=== PATIENT | male | born 1930 | race Caucasian/White ===

== ENCOUNTER 2017-08-30 12:36 | Observation (INO) | payer MEDICARE, OTHER ==
[~2017-08-30] VITALS: Ht 180.3 cm; Wt 71.4 kg
[~2017-08-30 12:36] MED LIST: BETAPACE80 M1 PO; Z OSTEO BI FLEX PO; Z.0.ASPIRIN81 MG PO; Z.0.MULTIVITAMINS1 E PO; Z.0.NEXIUM40 MG PO; Z.0.PLAQUENIL200 MG PO; Z.0.PLAVIX75 MG PO; Z.0.REGLAN10 MG PO; Z.0.VYTORIN 10-401 E PO
[2017-08-30 13:02] LABS: BASOPHILS % 0.5 % (0.0-1.0); EOSINOPHILS # (AUTO) 0.2 (0.0-0.4); EOSINOPHILS % 2.5 % (0.0-6.0); HEMATOCRIT 35.5 % (38.2-49.6); HEMOGLOBIN 12.3 g/dL (14.0-18.0); LYMPHOCYTES % 26.4 % (18.0-39.1); MEAN CORPUSCULAR HEMOGLOBIN 31.8 pg (28-32); MEAN CORPUSCULAR HGB CONC 34.6 g/dL (31-35); MEAN CORPUSCULAR VOLUME 91.7 fL (81-99); MONOCYTES # (AUTO) 0.8 (0.2-0.8); MONOCYTES % 10.2 % (4.4-11.3); NEUTROPHILS # (AUTO) 4.6 (2.1-6.9); NEUTROPHILS % 60.1 % (38.7-80.0); PLATELET COUNT 187 x10e3/uL (140-360); RED BLOOD COUNT 3.87 x10e6/uL (4.3-5.7); RED CELL DISTRIBUTION WIDTH 12.7 % (11.7-14.4)
[2017-08-30 13:10] LABS: INR 1.18; PROTHROMBIN TIME 14.1 seconds (11.9-14.5)
[2017-08-30 13:11] LABS: PARTIAL THROMBOPLASTIN TIME 26.9 seconds (23.8-35.5)
[2017-08-30 13:20] LABS: ALANINE AMINOTRANSFERASE 11 IU/L (0-55); ALBUMIN/GLOBULIN RATIO 1.2 (0.8-2.0); ALKALINE PHOSPHATASE 72 IU/L (40-150); AMYLASE 59 U/L (25-125); ANION GAP 12.6 mmol/L (8-16); BLOOD UREA NITROGEN 14 mg/dL (7-26); BUN/CREATININE RATIO 16 (6-25); CALCIUM 9.7 mg/dL (8.4-10.2); CARBON DIOXIDE 27 mmol/L (22-29); CHLORIDE 96 mmol/L (98-107); CREATINE KINASE 112 IU/L (30-200); CREATININE, SERUM 0.86 mg/dL (0.72-1.25); EST GLOMERULAR FILTRATION RATE > 60 ML/MIN (60-); GLUCOSE 119 mg/dL (74-118); LIPASE 24 U/L (8-78); MAGNESIUM 2.9 MG/DL (1.3-2.1); POTASSIUM 4.6 mmol/L (3.5-5.1); SODIUM 131 mmol/L (136-145)
[2017-08-30 13:53] LABS: CLARITY,URINE HAZY (CLEAR); COLOR,URINE YELLOW (YELLOW); KETONES,URINE NEGATIVE (NEGATIVE); LEUKOCYTE ESTERASE ,URINE TRACE (NEGATIVE); NITRITE,URINE NEGATIVE (NEGATIVE); PROTEIN,URINE DIPSTICK NEGATIVE (NEGATIVE); URINE UROBILINOGEN 0.2 mg/dL (0.2 - 1)
[2017-08-30 13:54] LABS: BILIRUBIN,URINE NEGATIVE (NEGATIVE)
[2017-08-30 13:57] LABS: BACTERIA,URINE FEW /HPF; EPITHELIAL CELLS,URINE FEW /LPF; RBC,URINE 0-5 /HPF (0-5); WBC,URINE (MAN) 0-5 /HPF (0-5)
--- NOTE | 2017-08-30 14:04 | Diagnostic Imaging Report ---
EXAMINATION: CHEST SINGLE (PORTABLE) INDICATION: Pain. COMPARISON: April 01, 2015. FINDINGS: TUBES and LINES: None. . LUNGS: Bilateral lower lobe chronic changes. There is no evidence of pneumonia or pulmonary edema. PLEURA: No pleural effusion or pneumothorax. HEART AND MEDIASTINUM: The cardiomediastinal silhouette is unremarkable. Median sternotomy wires, unchanged. BONES AND SOFT TISSUES: No acute osseous lesion. Oval density centered on the mid lateral left hemithorax estimated at 10.7 x 6.5 cm concerning for mass. UPPER ABDOMEN: No free air under the diaphragm. IMPRESSION: No acute thoracic abnormality. 10.1 cm oval density projected on the lateral left hemithorax concerning for a mass. Recommend further evaluation with CT chest. Signed by: Dr. Tereso Pina M.D. on 08/30/2017 2:00 PM
--- NOTE | 2017-08-30 17:05 | Diagnostic Imaging Report ---
EXAM: CT Chest WITH contrast 08/30/2017 2:07 PM INDICATION: Pain. COMPARISON: None possible mass on chest x-ray. Prior asbestos exposure. Shortness of breath. TECHNIQUE: Chest was scanned utilizing a multidetector helical scanner from the lung apex through the level of the adrenal glands without administration of IV contrast. Coronal and sagittal reformations were obtained. Routine protocol was performed. IV CONTRAST: 100 cc [id number]. RADIATION DOSE: Total DLP: 471.77 mGy*cm Estimated effective dose: (DLP x 0.014 x size factor) mSv COMPLICATIONS: None FINDINGS: LINES/ TUBES: None. Mild bilateral emphysematous changes. Calcified granuloma in the right upper lobe laterally on coronal image 30. Patchy density in the left lung base laterally as seen on coronal image 34 is nonspecific, possibly atelectasis, scarring versus pneumonia in the proper setting. Thickening of the pulmonary interstitium in the lung bases is nonspecific, and can be seen with senescent fibrosis, however, differential diagnosis includes asbestosis. PLEURA: There are calcified and noncalcified plaques in the lateral left hemithorax, suggesting prior as best as exposure, and which resulted in appearance of the chest x-ray performed earlier in the same day. No parenchymal soft tissue mass is identified. There are also calcified pleural plaques in the right hemithorax. Biapical pleural-parenchymal scarring. HEART AND MEDIASTINUM: No mediastinal, hilar or axillary lymphadenopathy. The heart is normal in size.. There is no pericardial effusion. Mediastinum wires and mediastinal clips. Extensive opacification of the aorta and coronary arteries. UPPER ABDOMEN: Limited non-contrast views of the upper abdomen a few small subcentimeter low-attenuation lesions scattered throughout the spleen, nonspecific, however, statistically most likely benign in etiology such as small hamartomas. The adrenal glands are normal. BONES: There are degenerative changes in the thoracic spine. SOFT TISSUES: Unremarkable. IMPRESSION: 1. Calcified and noncalcified pleural plaques in the mid lateral left hemithorax likely resulted in appearance of a mass in the chest x-ray performed earlier the same day. There is no associated pulmonary parenchymal or chest wall mass as suspected. Bilateral calcified pleural plaques are suggestive of prior asbestos exposure. 2. Patchy density in the left lung base laterally may represent atelectasis, scarring versus developing pneumonia in the proper clinical setting. 3. Thickening of the pulmonary interstitium in the lung bases is nonspecific, and can be seen with senescent fibrosis, however, differential diagnosis includes asbestosis. Signed by: Dr. Tereso Pina M.D. on 08/30/2017 5:02 PM
[2017-08-30] MEDS ORDERED: SODIUM CHLORIDE 0.9% 50ML 50 ML ONE (19:04)
[2017-08-30] MEDS ORDERED: IOPAMIDOL 370 MG/ML 200 ML INFUS..BTL INJ ONE (19:04)
[2017-08-30 19:55] VITALS: BP 158/70
[2017-08-30 21:50] LABS: CREATINE KINASE MB 2.9 ng/mL (0-5.0)
[2017-08-31] VITALS: BP 116/60
[2017-08-31 00:49] VITALS: BP 116/60
[2017-08-31 00:54] VITALS: BP 116/60
[2017-08-31 04:00] VITALS: BP 114/52
[2017-08-31 05:58] LABS: CREATINE KINASE MB 3.2 ng/mL (0-5.0)
[2017-08-31] MEDS ORDERED: METOCLOPRAMIDE HCL 10 MG TAB PO SCH (07:30)
[2017-08-31 08:00] VITALS: BP 105/65
[2017-08-31] MEDS ORDERED: METOCLOPRAMIDE HCL 10 MG TAB PO PRN (08:00)
[2017-08-31] MEDS ORDERED: PANTOPRAZOLE SOD 40 MG TABEC PO SCH (08:30)
[2017-08-31] MEDS ORDERED: SIMVASTATIN 40 MG TAB PO SCH ×2 (09:00→21:00)
[2017-08-31] MEDS ORDERED: SOTALOL HCL 80 MG TAB PO SCH (09:00)
[2017-08-31] MEDS ORDERED: MULTIVITAMINS/MINERALS TAB PO SCH (09:00)
[2017-08-31] MEDS ORDERED: BOSWELLIA SERRA PO SCH (09:00)
[2017-08-31] MEDS ORDERED: CLOPIDOGREL BISULFATE 75 MG TAB PO SCH ×2 (09:00→21:00)
[2017-08-31] MEDS ORDERED: EZETIMIBE 10 MG TAB PO SCH ×2 (09:00→21:00)
[2017-08-31] MEDS ORDERED: GLUCOSAMINE PO SCH (09:00)
[2017-08-31] MEDS ORDERED: ASPIRIN 81 MG CHEW TAB PO SCH ×2 (09:00→21:00)
[2017-08-31] MEDS ORDERED: [UNRECOGNIZED DRUG - OTHER] PO SCH (09:00)
[2017-08-31] MEDS ORDERED: D3 PO SCH (09:00)
[2017-08-31 12:19] VITALS: BP 113/56
--- NOTE | 2017-08-31 13:14 | History and Physical ---
CHIEF COMPLAINT: An 87-year-old gentleman comes in with abdominal pain. HISTORY OF PRESENTING ILLNESS: This is Mr. Dowd with a history of coronary artery disease, who was in his usual state of health until about 3 days prior to admission the patient started with epigastric pain which is generalized and radiating to the back. The patient described this as moderate, and the patient waited for 2 or 3 days with the pain getting increasing and then presented and was admitted for abdominal pain and a history of coronary artery disease. PAST MEDICAL HISTORY: History of hypertension, history of coronary artery disease, history of hyperlipidemia, history of chronic arthritis, history of reflux esophagitis. MEDICATIONS: Medicines he takes at home are aspirin 81 mg, clopidogrel 75 mg, esomeprazole 40 mg daily, Vytorin 10/40, glucosamine D3, hydroxychloroquine 200 mg daily and 10 mg p.r.n., multivitamin 1 tablet daily and sotalol 80 mg 3 times a day. ALLERGIES: NO KNOWN DRUG ALLERGIES. SURGICAL HISTORY: History of colon cancer resection, a history of also cataract surgeries bilaterally, and the patient has had 2 bypasses in and 2012. REVIEW OF SYSTEMS: Negative for chest pain. Positive for some shortness of breath. Positive for some nausea. No vomiting, no diarrhea, no constipation. No rectal bleeding. No hematochezia, no hematemesis. SOCIAL HISTORY: No ETOH, no IV drug abuse, no history of smoking either. PHYSICAL EXAMINATION GENERAL: Patient is alert and oriented x3. HEENT: Normocephalic, atraumatic. Pupils react to light and accommodation. CARDIOVASCULAR: S1 and S2 normal. Regular rate and rhythm. ABDOMEN: Tender in the epigastrium. EXTREMITIES: No clubbing, no cyanosis and no edema. LABORATORY VALUES: Initial white count of 7.5, hemoglobin of 12.3 and hematocrit of 35.5. BNP was 366 with a troponin of 0.004, 0.003 and 0.110. Amylase and lipase were normal. Magnesium was 2.9. Glucose was 119. Chloride was 96 with a sodium of 131. ASSESSMENT: Epigastric pain, more than likely gastric in nature. Will go ahead and consult Dr. Zain Rodriguez. Put him back on his PPIs. For his slight leak in the troponin, will keep an eye on it and an EKG today. Also consult Dr. Christian Babni. The patient belongs to Dr. Crocker. Will change patient back to Dr. Rosado, who is attending. For further information, look in the chart. Will continue monitoring his electrolytes tomorrow for his sodium and also for his creatinine. Further recommendations on clinical course. Job#: [id number]
== END 2017-08-31 12:30 | disposition home or self-care (01) ==
LOC: ER 12:36 → ERHOLD 17:40 → IMCU 19:55
PROVIDERS: ADMIT Family Medicine; ATTEND Family Medicine
DX: R10.13 Epigastric pain (principal); E78.5 Hyperlipidemia, unspecified; I25.10 Atherosclerotic heart disease of native coronary artery without angina pectoris; Z95.1 Presence of aortocoronary bypass graft; I10 Essential (primary) hypertension; Z85.038 Personal history of other malignant neoplasm of large intestine
CPT/HCPCS: 36415 ×2; 71045; 71260; 80053; 81001; 82150; 82550 ×2; 82553 ×2; 83690; 83735; 83880; 84484 ×2; 85025; 85610; 85730; 93005; 99284; G0378 ×2; Q9967; S0164

== ENCOUNTER → 2017-09-08 | Outpatient (CLI) | payer MEDICARE, OTHER ==
[~2017-09-08] MED LIST changes: +REGADENOSON 0.4 MG/5 ML SYR IV ONE
== END ==
LOC: NM 10:26
PROVIDERS: ATTEND Internal Medicine Cardiovascular Disease
DX: I25.119 Atherosclerotic heart disease of native coronary artery with unspecified angina pectoris (principal); R94.31 Abnormal electrocardiogram [ECG] [EKG]
CPT/HCPCS: 78452; 93017; A9502

== ENCOUNTER 2017-10-10 10:18 | Emergency (ER) | payer MEDICARE, OTHER ==
[~2017-10-10] VITALS: Ht 180.3 cm; Wt 72.6 kg
[~2017-10-10 10:18] MED LIST changes: -REGADENOSON 0.4 MG/5 ML SYR IV ONE
[2017-10-10 11:55] VITALS: BP 154/78
== END 2017-10-10 12:00 | disposition home or self-care (01) ==
LOC: ER 10:18
DX: Z48.00 Encounter for change or removal of nonsurgical wound dressing (principal)
CPT/HCPCS: 99282